=== PATIENT | male | born 1935 | race Caucasian/White ===

== ENCOUNTER 2020-07-01 14:16 | Outpatient (REF) | payer MEDICARE, OTHER, SELFPAY ==
[2020-07-01 15:11] LABS: MANUAL DIFF FLAG NO
[2020-07-01 15:32] LABS: Basophils Absolute Auto 0.1 X10*3/uL (0.0-0.2); Basophils Percent Auto 0.6 % (0-2); Eosinophils Absolute Auto 0.4 X10*3/uL (0.0-0.4); Eosinophils Percent Auto 4.5 % (0-4); Hematocrit 39.4 % (42-52); Hemoglobin 13.2 g/dl (14.0-18.0); Imm Gran Abs Auto 0.03 X10*3/uL (0.00-0.03); Imm Gran Pct Auto 0.4 % (0.0-0.4); Lymphocytes Absolute Auto 1.3 X10*3/uL (1.2-4.9); Lymphocytes Percent Auto 15.8 % (20-40); Mean Corpuscular HGB Conc 33.5 g/dl (31.0-36.0); Mean Corpuscular Hemoglobin 32.9 pg (27.0-33.0); Mean Corpuscular Volume 98.3 fL (80-98); Mean Platelet Volume 9.8 fL (9.4-12.4); Monocytes Absolute Auto 0.8 X10*3/uL (0.1-1.2); Monocytes Percent Auto 9.6 % (2-11); Neutrophils Absolute Auto 5.8 X10*3/uL (2.0-8.3); Neutrophils Percent Auto 69.1 % (45-73); Platelet Count 215 X10*3/uL (160-400); Red Blood Count 4.01 X10*6/uL (4.60-5.80); Red Cell Distribution Width 12.8 % (11.0-16.0); White Blood Count 8.4 X10*3/uL (4.8-10.8)
[2020-07-01 15:58] LABS: Anion Gap 11 (12-20); Blood Urea Nitrogen 17 mg/dL (9-16); Carbon Dioxide 27 mmol/L (22-29); Chloride 106 mmol/L (96-108); Estimated Glomerular Filt Rate > 60; Glucose Random 87 mg/dL (60-115); Sodium 140 mmol/L (135-145)
== END 2020-07-01 14:17 | disposition home or self-care (01) ==
LOC: HO.LAB 14:16
PROVIDERS: PCP Family Medicine; Visit Provider Internal Medicine
DX: K51.30 Ulcerative (chronic) rectosigmoiditis without complications (principal)
CPT/HCPCS: 36415; 80051; 82565; 82947; 84520; 85025

== ENCOUNTER 2020-10-15 11:20 | Outpatient (REF) | payer MEDICARE, OTHER, SELFPAY ==
--- NOTE | 2020-10-15 | US_ITS ---
EXAMINATION: US RETROPERITONEAL LIMITED (RENAL ONLY) CLINICAL INFORMATION: Renal stone.. COMPARISON: Renal ultrasound 12/31/[address] abdomen 10/01/2019. TECHNIQUE: Routine retroperitoneal ultrasound imaging was performed. FINDINGS: RIGHT KIDNEY: 11.7 x 4.6 x 4.8 cm (SAG x AP x TRV). The kidney is normal in size, contour, and echogenicity. Renal cortical thickness is normal. There are clusters of small radiopaque calculi in lower pole with the largest echogenic stone measuring 0.5 x 0.3 cm. There are several anechoic cysts seen. The multiple cysts largest cyst with septations measures 2.2 x 2.1 x 2.0 cm in the lower pole. No caliectasis or hydronephrosis seen. No hematoma seen as was noted previously LEFT KIDNEY: 13.2 x 5.9 x 5.7 cm (SAG x AP x TRV). The kidney is normal in size, contour, and echogenicity. Renal cortical thickness is normal. There are multiple anechoic cysts with largest midpole cyst measuring 1.3 x 1.0 x 1.0 cm. There is an echogenic stone in lower pole measuring 0.4 x 0.2 cm in lower pole. There is echogenic calcification in the upper pole cortex, ? vascular. US/US renal BI IMPRESSION: 1. Bilateral renal cysts. Largest complex cyst with septation right kidney measures 2.2 cm. 2. Nonobstructive bilateral renal echogenic stones. No caliectasis.
== END 2020-10-15 11:21 | disposition home or self-care (01) ==
LOC: HO.US 11:20
PROVIDERS: Visit Provider Urology
DX: N20.0 Calculus of kidney (principal)
CPT/HCPCS: 76775

== ENCOUNTER → 2020-10-21 13:06 | Outpatient (BNVA) | payer MEDICARE, OTHER, SELFPAY | PROVIDERS: PCP Family Medicine; Visit Provider Urology | DX: Z13.89 Encounter for screening for other disorder (principal) | CPT/HCPCS: Q3014 ==

== ENCOUNTER 2020-12-31 08:28 | Outpatient (REF) | payer MEDICARE, OTHER, SELFPAY ==
[2020-12-31 17:55] LABS: Alanine Aminotransferase 16 U/L (0-40); Anion Gap 12 (12-20); Blood Urea Nitrogen 17 mg/dL (9-16); Carbon Dioxide 26 mmol/L (22-29); Chloride 106 mmol/L (96-108); Estimated Glomerular Filt Rate > 60; Potassium 4.2 mmol/L (3.3-5.1); Sodium 140 mmol/L (135-145)
== END 2020-12-31 08:29 | disposition home or self-care (01) ==
LOC: HO.HMGCLDS 08:28
PROVIDERS: Visit Provider Family Medicine
DX: I10 Essential (primary) hypertension (principal); E78.00 Pure hypercholesterolemia, unspecified; Z79.899 Other long term (current) drug therapy
CPT/HCPCS: 36415; 80051; 82550; 82565; 84460; 84520

== ENCOUNTER 2021-01-29 10:15 | Emergency (ER) | payer MEDICARE, OTHER, SELFPAY ==
--- NOTE | ~2021-01-29 | XR_ITS ---
EXAMINATION: XR CHEST CLINICAL INFORMATION: Dizziness, unsteady gait. COMPARISON: None TECHNIQUE: 2 views of the chest were obtained. FINDINGS: The lungs are well-expanded and clear of acute pneumonic process heart size and pulmonary vascularity is normal. There is mild spondylosis of dorsal spine. No lytic process seen. XR/XR chest 2V IMPRESSION: Unremarkable chest exam.
--- NOTE | ~2021-01-29 | CT_ITS ---
EXAMINATION: CT HEAD WITHOUT CONTRAST CLINICAL INFORMATION: Dizziness, unsteady on feet x3 weeks COMPARISON: None TECHNIQUE: Contiguous axial imaging was performed from the skull base to vertex without intravenous administration of contrast. This CT examination was performed using dose optimization techniques as appropriate, variously including the following: *Automated exposure control *Adjustment of mA and/or kV according to patient size (this includes techniques or standardized protocols for targeted exams where dose is matched to indication/reason for exam; i.e. extremities or head) *Use of iterative reconstruction technique DLP: 622 mGy-cm FINDINGS: There is no evidence of acute intracranial hemorrhage or territorial infarction. No abnormal mass effect or midline shift is seen. Mas to white matter differentiation is well preserved. No extra-axial fluid collections are identified. The lateral ventricles are symmetrical but mildly enlarged. There is diffuse periventricular hypodensity in both cerebral hemispheres suggestive of chronic small vessel ischemic changes. There is mild atherosclerotic changes of left vertebral and basilar artery with mild dolichoectasia. The osseous structures and soft tissues are normal. There is mild mucoperiosteal thickening in bilateral maxillary sinuses. Rest of the paranasal sinuses and mastoid air cells are well-aerated. CT/CT head/brain wo con IMPRESSION: No acute intracranial process seen. Chronic bilateral maxillary sinus inflammatory changes.
--- NOTE | 2021-01-29 11:13 | ECG_ITS ---
Test Reason : DIZZINESS Blood Pressure : / mmHG Vent. Rate : 056 BPM Atrial Rate : 056 BPM P-R Int : 164 ms QRS Dur : 092 ms QT Int : 430 ms P-R-T Axes : -04 032 053 degrees QTc Int : 414 ms Sinus bradycardia Otherwise normal ECG When compared with ECG of 24-JUN-2009 14:05, No significant change was found Referred By: Rosalina Aldana Electronically Signed By:BRIDGET REES
[2021-01-29 11:14] VITALS: BP 162/78; PULSE 64; RESP 16; TEMP 36.7; O2SAT 97; BMI 22.8
[2021-01-29 11:30] LABS: MANUAL DIFF FLAG NO
--- NOTE | 2021-01-29 11:36 | ED_ITS ---
HPI - General Adult General Chief complaint: General Medical Stated complaint: anxiety Time Seen by Provider: 01/29/21 11:02 Source: patient and family Mode of arrival: ambulatory Limitations: no limitations History of Present Illness HPI narrative: 85-year-old male with a past medical history of hypertension, hypercholesterolemia, elevated PSA, renal cyst/stones, diverticulosis status post bowel resections and colitis presenting to the ED with complaints of dizziness, dry mouth, jittery and unsteady on his feet for the past 3 weeks after he started Budesonide 3 weeks ago for colitis. He reports he may be deh ydrated. He reports he continues to have semi formed stools which is similar compared to priors and has when approximately 4 times this morning. No changes in stool habits. Reports he is also currently on Tamulosin/Flomax, omeprazole and Mesalamine although he has chronically been on this for months to years and has never had of the symptoms he has been experiencing over the past 3 weeks. Denies any head injury, headache, changes in vision, nausea/vomiting, chest pain, shortness of breath, dyspnea exertion, orthopnea, abdominal pain, back pain, paresthesias, palpitations, black or bloody stools, dysuria, hematuria or any other symptoms complaints or concerns at this time. Reports he is not on any blood thinners. Denies recent travel or sick contacts. Related Data Home Medications Medication Instructions Recorded Confirmed aspirin 81 mg tablet,delayed 81 mg PO DAILY 10/21/20 10/21/20 release omeprazole 10 mg capsule,delayed 10 mg PO DAILY 10/21/20 10/21/20 release simvastatin 40 mg tablet 40 mg PO DAILY 10/21/20 10/21/20 Previous Rx's Medication Instructions Recorded tamsulosin 0.4 mg capsule 0.4 mg PO DAILY 90 Days #90 cap 11/21/20 Allergies Allergy/AdvReac Type Severity Reaction Status Date / Time meperidine [From Demerol] Allergy Severe N/V Unverified 06/12/20 15:10 Review of Systems Review of Systems: Constitutional : No Fever, No Chills, No Night Sweats, No Fatigue, No Malaise ENT/Mouth : Positive dry mouth sensation, No Ear Pain, No Nasal Congestion, No Sinus Pain, No sore throat, No Rhinorrhea Eyes: No Eye Pain, No Swelling, No Redness, No Foreign Body, No Discharge, No Vision Changes Cardiovascular : No Chest Pain, No SOB, No Dyspnea on Exertion, No Orthopnea, No Palpitations Respiratory : No Cough, No Sputum, No Wheezing, No Dyspnea Gastrointestinal : Positive loose stools, No Nausea, No Vomiting, No Diarrhea, No Constipation, No abdominal Pain, No Hematochezia, No Melena Genitourinary : No Dysuria, No Urinary Frequency, No Urinary Incontinence, No Urgency, No Flank Pain Musculoskeletal : No joint pain, No Myalgias Skin : No lacerations Neuro : Positive dizziness x 3 weeks, positive feeling unsteady of his feet x 3 weeks, No Focal weakness, no general weakness, No Numbness, No Paresthesias, No Loss of Consciousness, No Headache Psych: Positive anxiety, no depression, no SI, no homicidal ideations, no aud itory or visual hallucinations or thoughts of self injury Yes all other systems are reviewed and are negative [facility] Past Medical History Attestation statement: The following information was validated with the patient. Medical History Colitis Elevated PSA Elevated PSA Renal cyst Renal stones Renal stones Ureteral stone with hydronephrosis Surgical History History of bowel resection Social History Social History Household Members: Spouse Smoking Status: Former smoker Advance Directives: Yes Advance Directives Information Provided: Yes Advance Directives on File: No Current occupational status: retired Physical Exam Vital Signs: Vital Signs: Last Vital Signs Temp 98.1 F 01/29/21 11:14 Pulse 70 01/29/21 12:58 Resp 16 01/29/21 12:58 BP 153/76 H 01/29/21 12:58 Pulse Ox 99 01/29/21 12:58 Body Mass Index 22.8 Vital signs have been reviewed as normal and appeared to be correct. Blood pressure hypertensive at 162/78. Heart rate normal. Respiration rate normal. Temperature normal. Oxygen saturation normal. Appearance: Alert. Oriented X3. No acute distress. Head: Normal external exam. Normocephalic. Atraumatic. Able to rotate head bilaterally. Eyes: PERRLA. EOMI. No nystagmus noted. Conjunctiva and sclera normal. Eyelids normal. Corneal reflex normal. ENT: EAC normal. TM's Normal. Hearing normal. Pharynx normal. Uvula midline. tongue midline. Moist mucous membranes. No trismus noted. No drooling noted. No muffled voice noted. No nystagmus noted. Neck: Normal inspection. Neck supple. FROM. No adenopathy. Trachea midline. Thyroid Normal. No meningeal signs. No neck mass noted. CVS: Normal heart rate and rhythm. Heart sound normal. No murmurs noted. Pulses normal throughout. Respiratory: No respiratory distress. Painless inspiration. Breath sounds normal. No wheezes/rales/rhonchi noted. Chest nontender. No accessory muscle usage noted or decreased air movement noted. Abdomen: Soft and nontender. Bowel sounds normal in all 4 quadrants. No distention noted. No organomegaly noted. No visible injury noted. Back: No CVA tenderness. Full range of motion noted. Skin: Skin warm and dry. Normal skin color. Normal skin turgor. No rashes/lesions/lacerations noted. Extremities: No lower extremity edema. Extremities exhibit normal range of motion. Extremities nontender. Able to shrug shoulders bilaterally and keep up against resistance. Neuro: Oriented X 3. No motor deficit. No sensory deficit. Reflexes normal. Moving all extremities. No focal motor deficits. Cranial nerves II-XI intact bilaterally. Facial strength normal. Normal cognition. Speech normal. Gait normal. Strength 5/5 throughout. No pronator drift. No tremor noted. No fasciculations noted. No rigidity noted. Muscle tone normal throughout. No asterixis noted. Kyhncx-wv-[id number] test normal. Heel to lafleur test normal. Tandem gait normal. Does not sway with eyes open. Romberg test negative. Rapid alternating movement upper extremity normal. Rapid alternating movement lower extremity normal. Hand drop from overhead Misses face. NIHSS score 0. Course Course Course Narrative: 13pm - labs obtained and patient with a mild baseline anemia similar when compared to prior. Total bilirubin 1.5 although patient's abdomen is soft and nontender. Otherwise all other labs are within normal limits. UA within normal limits no evidence of UTI. 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 Chest x-ray within normal limits no acute processes are noted. EKG is sinus bradycardia no acute processes are noted. 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 Instructed patient to return if any new or worsening symptoms to follow up with primary care provider. Patient and daughter at bedside understand and agree with this plan. Medical Decision Making [facility] Narrative Medical decision making narrative: 11:15am - 85-year-old male with a past medical history of hypertension, hypercholesterolemia, elevated PSA, renal cyst/stones, diverticulosis status post bowel resections and colitis presenting to the ED with complaints of dizziness, dry mouth, jittery and unsteady on his feet for the past 3 weeks after he started Budesonide 3 weeks ago for colitis. - on exam patient is alert and oriented x3. Not in any acute distress. Mildly hypertensive at 162/78 otherwise all other vitals are within normal limits. No focal neuro deficits are noted. Normal steady gait. NIH SS score 0. Patient not a candidate for tPA as symptoms started approximately 3 weeks ago and he has non disabling symptoms at this time. Lungs clear to auscultation, CV RRR. Abdomen is soft nontender. No lower extremity edema or calf tenderness noted. - Plan: Labs, CT scan of brain, EKG, chest x-ray, orthostatic vitals then re- evaluate. Lab Data Result diagrams: 01/29/21 11:24 01/29/21 11:24 Labs: Lab Results 01/29/21 01/29/21 01/29/21 Range/Units 11:24 11:24 11:24 WBC 8.5 (4.8-10.8) X10*3/uL RBC 4.00 L (4.60-5.80) X10*6/uL Hgb 12.8 L (14.0-18.0) g/dl Hct 39.0 L (42-52) % MCV 97.5 (80-98) fL MCH 32.0 (27.0-33.0) pg MCHC 32.8 (31.0-36.0) g/dl RDW 12.9 (11.0-16.0) % Plt Count 208 (160-400) X10*3/uL MPV 9.2 L (9.4-12.4) fL Immature Gran % (Auto) 0.2 (0.0-0.4) % Neut % (Auto) 66.7 (45-73) % Lymph % (Auto) 19.7 L (20-40) % Wheeler % (Auto) 11.3 H (2-11) % Eos % (Auto) 1.4 (0-4) % Baso % (Auto) 0.7 (0-2) % Lymph # (Auto) 1.7 (1.2-4.9) X10*3/uL Wheeler # (Auto) 1.0 (0.1-1.2) X10*3/uL Eos # (Auto) 0.1 (0.0-0.4) X10*3/uL Baso # (Auto) 0.1 (0.0-0.2) X10*3/uL Abs Immat Gran (auto) 0.02 (0.00-0.03) X10*3/uL Absolute Neuts (auto) 5.7 (2.0-8.3) X10*3/uL Absolute Nucleated RBC 0.000 (0.0-0.012) X10*3/uL Nucleated RBC % (auto) 0.0 (0.0-0.2) /100WBC Hold Purple Top PT Cancelled INR Cancelled APTT (24.1-38.0) SEC Sodium (135-145) mmol/L Potassium (3.3-5.1) mmol/L Chloride (96-108) mmol/L Carbon Dioxide (22-29) mmol/L Anion Gap (12-20) BUN (9-16) mg/dL Creatinine (0.5-1.4) mg/dL Estim Creat Clear Calc Estimated GFR Random Glucose (60-115) mg/dL Calcium (8.4-10.2) mg/dL Magnesium 2.0 (1.6-2.6) mg/dL Total Bilirubin (0.0-1.0) mg/dL AST (5-37) U/L ALT (0-40) U/L Alkaline Phosphatase (39-117) U/L Total Protein (6.5-8.0) g/dL Albumin (3.5-5.0) g/dL Urine Color Urine Appearance Urine pH (5.0-8.0) Ur Specific [place] (1.005-1.025) Urine Protein (NEG-TRACE) MG/DL Urine Glucose (UA) (NEG) MG/DL Urine Ketones (NEG) MG/DL Urine Blood (NEG) Urine Nitrite (NEG) Ur Leukocyte Esterase (NEG) Urine RBC (0) /HPF Urine WBC (0-4) /HPF Ur Squamous Epith Cells /LPF Urine Bacteria /LPF Urine Mucus /LPF 01/29/21 01/29/21 01/29/21 Range/Units 11:24 11:24 11:24 WBC (4.8-10.8) X10*3/uL RBC (4.60-5.80) X10*6/uL Hgb (14.0-18.0) g/dl Hct (42-52) % MCV (80-98) fL MCH (27.0-33.0) pg MCHC (31.0-36.0) g/dl RDW (11.0-16.0) % Plt Count (160-400) X10*3/uL MPV (9.4-12.4) fL Immature Gran % (Auto) (0.0-0.4) % Neut % (Auto) (45-73) % Lymph % (Auto) (20-40) % Wheeler % (Auto) (2-11) % Eos % (Auto) (0-4) % Baso % (Auto) (0-2) % Lymph # (Auto) (1.2-4.9) X10*3/uL Wheeler # (Auto) (0.1-1.2) X10*3/uL Eos # (Auto) (0.0-0.4) X10*3/uL Baso # (Auto) (0.0-0.2) X10*3/uL Abs Immat Gran (auto) (0.00-0.03) X10*3/uL Absolute Neuts (auto) (2.0-8.3) X10*3/uL Absolute Nucleated RBC (0.0-0.012) X10*3/uL Nucleated RBC % (auto) (0.0-0.2) /100WBC Hold Purple Top SEE NOTE PT 13.6 H INR 1.1 APTT 30.7 (24.1-38.0) SEC Sodium 138 (135-145) mmol/L Potassium 3.7 (3.3-5.1) mmol/L Chloride 106 (96-108) mmol/L Carbon Dioxide 26 (22-29) mmol/L Anion Gap 10 L (12-20) BUN 17 H (9-16) mg/dL Creatinine 0.80 (0.5-1.4) mg/dL Estim Creat Clear Calc 66.1 Estimated GFR > 60 Random Glucose 116 H (60-115) mg/dL Calcium 8.9 (8.4-10.2) mg/dL Magnesium (1.6-2.6) mg/dL Total Bilirubin 1.5 H (0.0-1.0) mg/dL AST 15 (5-37) U/L ALT 18 (0-40) U/L Alkaline Phosphatase 61 (39-117) U/L Total Protein 6.4 L (6.5-8.0) g/dL Albumin 3.7 (3.5-5.0) g/dL Urine Color Urine Appearance Urine pH (5.0-8.0) Ur Specific [place] (1.005-1.025) Urine Protein (NEG-TRACE) MG/DL Urine Glucose (UA) (NEG) MG/DL Urine Ketones (NEG) MG/DL Urine Blood (NEG) Urine Nitrite (NEG) Ur Leukocyte Esterase (NEG) Urine RBC (0) /HPF Urine WBC (0-4) /HPF Ur Squamous Epith Cells /LPF Urine Bacteria /LPF Urine Mucus /LPF 01/29/21 Range/Units 11:48 WBC (4.8-10.8) X10*3/uL RBC (4.60-5.80) X10*6/uL Hgb (14.0-18.0) g/dl Hct (42-52) % MCV (80-98) fL MCH (27.0-33.0) pg MCHC (31.0-36.0) g/dl RDW (11.0-16.0) % Plt Count (160-400) X10*3/uL MPV (9.4-12.4) fL Immature Gran % (Auto) (0.0-0.4) % Neut % (Auto) (45-73) % Lymph % (Auto) (20-40) % Wheeler % (Auto) (2-11) % Eos % (Auto) (0-4) % Baso % (Auto) (0-2) % Lymph # (Auto) (1.2-4.9) X10*3/uL Wheeler # (Auto) (0.1-1.2) X10*3/uL Eos # (Auto) (0.0-0.4) X10*3/uL Baso # (Auto) (0.0-0.2) X10*3/uL Abs Immat Gran (auto) (0.00-0.03) X10*3/uL Absolute Neuts (auto) (2.0-8.3) X10*3/uL Absolute Nucleated RBC (0.0-0.012) X10*3/uL Nucleated RBC % (auto) (0.0-0.2) /100WBC Hold Purple Top PT INR APTT (24.1-38.0) SEC Sodium (135-145) mmol/L Potassium (3.3-5.1) mmol/L Chloride (96-108) mmol/L Carbon Dioxide (22-29) mmol/L Anion Gap (12-20) BUN (9-16) mg/dL Creatinine (0.5-1.4) mg/dL Estim Creat Clear Calc Estimated GFR Random Glucose (60-115) mg/dL Calcium (8.4-10.2) mg/dL Magnesium (1.6-2.6) mg/dL Total Bilirubin (0.0-1.0) mg/dL AST (5-37) U/L ALT (0-40) U/L Alkaline Phosphatase (39-117) U/L Total Protein (6.5-8.0) g/dL Albumin (3.5-5.0) g/dL Urine Color YELLOW Urine Appearance CLEAR Urine pH 6.0 (5.0-8.0) Ur Specific [place] 1.025 (1.005-1.025) Urine Protein NEG (NEG-TRACE) MG/DL Urine Glucose (UA) NEG (NEG) MG/DL Urine Ketones NEG (NEG) MG/DL Urine Blood TRACE (NEG) Urine Nitrite NEG (NEG) Ur Leukocyte Esterase NEG (NEG) Urine RBC 1-4 (0) /HPF Urine WBC 0-2 (0-4) /HPF Ur Squamous Epith Cells NONE /LPF Urine Bacteria NONE /LPF Urine Mucus TRACE /LPF Imaging Data Chest x-ray: Attestation: I personally reviewed and interpreted this imaging study as follows: Radiologist's impression: FINDINGS: The lungs are well-expanded and clear of acute pneumonic process heart size and pulmonary vascularity is normal. There is mild spondylosis of dorsal spine. No lytic process seen. XR/XR chest 2V IMPRESSION: Unremarkable chest exam. CT scan - head: Attestation: I personally reviewed and interpreted this imaging study as follows: Radiologist's impression: FINDINGS: There is no evidence of acute intracranial hemorrhage or territorial infarction. No abnormal mass effect or midline shift is seen. Mas to white matter differentiation is well preserved. No extra-axial fluid collections are identified. The lateral ventricles are symmetrical but mildly enlarged. There is diffuse periventricular hypodensity in both cerebral hemispheres suggestive of chronic small vessel ischemic changes. There is mild atherosclerotic changes of left vertebral and basilar artery with mild dolichoectasia. The osseous structures and soft tissues are normal. There is mild mucoperiosteal thickening in bilateral maxillary sinuses. Rest of the paranasal sinuses and mastoid air cells are well-aerated. CT/CT head/brain wo con IMPRESSION: No acute intracranial process seen. Chronic bilateral maxillary sinus inflammatory changes. ECG Data Attestation: I personally reviewed and interpreted this ECG as follows: Interpretation: Sinus bradycardia with ventricular rate of 56 with a normal NC interval normal QRS duration normal QT/QTC interval. No acute ischemic changes are noted. Similar when compared to prior EKG 06/24/2009. Discharge Plan Discharge Clinical Impression: Adverse reaction to drug Patient Disposition: Home, Self-Care Instructions: Budesonide (By mouth) Prescriptions: No Action tamsulosin 0.4 mg capsule 0.4 mg PO DAILY 90 Days Qty: 90 RF: 2 omeprazole 10 mg capsule,delayed release(DR/EC) 10 mg PO DAILY RF: 0 simvastatin 40 mg tablet 40 mg PO DAILY RF: 0 aspirin [Adult Low Dose Aspirin] 81 mg tablet,delayed release (DR/EC) 81 mg PO DAILY RF: 0 Referrals: Chu Vergara MD [Primary Care Provider] - 2 days Print Language: Maltese
[2021-01-29 11:38] LABS: Basophils Absolute Auto 0.1 X10*3/uL (0.0-0.2); Basophils Percent Auto 0.7 % (0-2); Eosinophils Absolute Auto 0.1 X10*3/uL (0.0-0.4); Eosinophils Percent Auto 1.4 % (0-4); Hemoglobin 12.8 g/dl (14.0-18.0); Imm Gran Abs Auto 0.02 X10*3/uL (0.00-0.03); Imm Gran Pct Auto 0.2 % (0.0-0.4); Lymphocytes Absolute Auto 1.7 X10*3/uL (1.2-4.9); Lymphocytes Percent Auto 19.7 % (20-40); Mean Corpuscular HGB Conc 32.8 g/dl (31.0-36.0); Mean Corpuscular Volume 97.5 fL (80-98); Mean Platelet Volume 9.2 fL (9.4-12.4); Monocytes Percent Auto 11.3 % (2-11); Neutrophils Absolute Auto 5.7 X10*3/uL (2.0-8.3); Neutrophils Percent Auto 66.7 % (45-73); Platelet Count 208 X10*3/uL (160-400); Red Cell Distribution Width 12.9 % (11.0-16.0); White Blood Count 8.5 X10*3/uL (4.8-10.8)
[2021-01-29 11:44] LABS: INTERNATIONAL NORM RATIO 1.1 (0.9-1.1); Prothrombin Time 13.6 SEC (10.8-13.0)
[2021-01-29 11:46] LABS: Partial Thromboplastin Time 30.7 SEC (24.1-38.0)
[2021-01-29 11:59] LABS: Alanine Aminotransferase 18 U/L (0-40); Albumin Level 3.7 g/dL (3.5-5.0); Alkaline Phosphatase 61 U/L (39-117); Anion Gap 10 (12-20); Aspartate Amino Transferase 15 U/L (5-37); Bilirubin Total 1.5 mg/dL (0.0-1.0); Blood Urea Nitrogen 17 mg/dL (9-16); Calcium 8.9 mg/dL (8.4-10.2); Carbon Dioxide 26 mmol/L (22-29); Chloride 106 mmol/L (96-108); Creatinine Clr Calc Pharmacy 66.1; Estimated Glomerular Filt Rate > 60; Glucose Random 116 mg/dL (60-115); Potassium 3.7 mmol/L (3.3-5.1); Sodium 138 mmol/L (135-145); Total Protein 6.4 g/dL (6.5-8.0)
[2021-01-29 12:01] LABS: Appearance Urine CLEAR; Color Urine YELLOW; Glucose Urine UA NEG (NEG); Leukocyte Esterase Urine NEG (NEG); Nitrite Urine NEG (NEG); Specific Gravity - Urine 1.025 (1.005-1.025); Urine Blood TRACE (NEG); Urine Ketones NEG (NEG); Urine Protein NEG (NEG-TRACE)
[2021-01-29 12:17] LABS: Mucus Urine TRACE /LPF; WBC Urine 0-2 /HPF (0-4)
[2021-01-29 12:58] VITALS: BP 153/76; PULSE 70; RESP 16; O2SAT 99
== END 2021-01-29 15:11 | disposition home or self-care (01) ==
PROVIDERS: Physician Assistant Medical; Emergency Provider Emergency Medicine; PCP Family Medicine
DX: R42 Dizziness and giddiness (principal); T44.6X5A Adverse effect of alpha-adrenoreceptor antagonists, initial encounter; F41.1 Generalized anxiety disorder; F43.0 Acute stress reaction; R26.81 Unsteadiness on feet; Y92.9 Unspecified place or not applicable; Z79.82 Long term (current) use of aspirin; Z79.899 Other long term (current) drug therapy; Z87.891 Personal history of nicotine dependence
CPT/HCPCS: 36415; 70450; 71046; 80053; 81001; 81003; 83735; 85025; 85610; 85730; 93005; 99284

== ENCOUNTER 2021-04-02 14:21 | Outpatient (REF) | payer MEDICARE, OTHER, SELFPAY ==
--- NOTE | ~2021-04-02 | US_ITS ---
EXAMINATION: US RETROPERITONEAL LIMITED (RENAL ONLY) CLINICAL INFORMATION: Cyst of kidney, acquired. COMPARISON: Bilateral renal ultrasound dated 10/15/2020. Renals only ultrasound dated 03/03/2020. KUBs dated 02/13/2020 and 01/16/2020. CT abdomen and pelvis without contrast dated 10/01/2019. TECHNIQUE: Real-time imaging of the kidneys. FINDINGS: RIGHT KIDNEY: 10.8 x 4.7 x 3.5 cm (SAG x AP x TRV). The kidney is normal in size, contour, and echogenicity. Renal cortical thickness is normal. There is a 1.6 x 1.3 x 1.4 cm cyst in the midpole. There is a 1.9 x 2.2 x 2 cm cyst in the midpole. There is a 2.2 x 2.1 x 2.1 cm minimally complex cyst in the lower pole with thin septation. No renal calculi or hydronephrosis. LEFT KIDNEY: 12.8 x 5.5 x 4.5 cm (SAG x AP x TRV). The kidney is normal in size, contour, and echogenicity. Renal cortical thickness is normal. There is a 1.2 x 1.2 x 1.1 cm cyst in the midpole. No renal calculi or hydronephrosis. US/US renal BI IMPRESSION: Stable bilateral cysts. Previously identified renal stones are not appreciated.
== END 2021-04-02 14:22 | disposition home or self-care (01) ==
LOC: HO.US 14:21
PROVIDERS: Visit Provider Urology
DX: N20.0 Calculus of kidney (principal); N28.1 Cyst of kidney, acquired; R97.20 Elevated prostate specific antigen [PSA]
CPT/HCPCS: 76775

== ENCOUNTER → 2021-05-28 14:34 | Outpatient (BNVA) | payer MEDICARE, OTHER, SELFPAY | PROVIDERS: PCP Family Medicine; Visit Provider Urology | DX: N28.1 Cyst of kidney, acquired (principal); R97.20 Elevated prostate specific antigen [PSA] | CPT/HCPCS: 99212 ==

== ENCOUNTER 2021-08-03 11:07 | Outpatient (REF) | payer MEDICARE, OTHER, SELFPAY ==
[2021-08-03 14:51] LABS: Alanine Aminotransferase 22 U/L (0-40); Anion Gap 12 (12-20); Blood Urea Nitrogen 17 mg/dL (9-16); Carbon Dioxide 26 mmol/L (22-29); Chloride 105 mmol/L (96-108); Estimated Glomerular Filt Rate > 60; Potassium 3.8 mmol/L (3.3-5.1); Sodium 139 mmol/L (135-145)
== END 2021-08-03 11:08 | disposition home or self-care (01) ==
LOC: HO.HMGCLDS 11:07
PROVIDERS: PCP Family Medicine; Visit Provider Family Medicine
DX: I10 Essential (primary) hypertension (principal); E78.00 Pure hypercholesterolemia, unspecified; Z79.899 Other long term (current) drug therapy
CPT/HCPCS: 36415; 80051; 82550; 82565; 84460; 84520

== ENCOUNTER 2021-10-13 13:30 | Outpatient (REF) | payer MEDICARE, OTHER, SELFPAY ==
[2021-10-13 17:13] LABS: Vitamin D 25-OH Total 37.3 ng/mL (>30)
[2021-10-17 12:41] LABS: Methylmalonic Acid 223 nmol/L (87-318)
== END 2021-10-13 13:31 | disposition home or self-care (01) ==
LOC: HO.HMGCLDS 13:30
PROVIDERS: PCP Family Medicine; Visit Provider Family Medicine
DX: F03.90 Unspecified dementia, unspecified severity, without behavioral disturbance, psychotic disturbance, mood disturbance, and anxiety (principal)
CPT/HCPCS: 36415; 82306; 83921

== ENCOUNTER 2021-10-27 10:11 | Outpatient (REF) | payer MEDICARE, OTHER, SELFPAY ==
--- NOTE | ~2021-10-27 | US_ITS ---
EXAMINATION: US RETROPERITONEAL LIMITED (RENAL ONLY) CLINICAL INFORMATION: Cyst of kidney, acquired. COMPARISON: Renal ultrasound 04/02/2021 and 10/15/2020. X-ray KUB 02/13/2020 and 01/16/2020. CT abdomen and pelvis 10/01/2019. TECHNIQUE: Real-time imaging of the kidneys. FINDINGS: RIGHT KIDNEY: 12.2 x 5.3 x 6.6 cm (SAG x AP x TRV). The kidney is normal in size, contour, and echogenicity. Renal cortical thickness is normal. No hydronephrosis. There are a few anechoic cysts. The largest cyst with internal debris measures 3.2 x 2.4 x 2.3 cm. There is an echogenic nonobstructive 2 mm stone midpole. No additional echogenic stones seen. There is no caliectasis. LEFT KIDNEY: 13.6 x 5.5 x 5.2 cm (SAG x AP x TRV). The kidney is normal in size, contour, and echogenicity. Renal cortical thickness is normal. No hydronephrosis. There are a few anechoic cysts. The largest cyst lower pole measures 1.4 x 1.2 x 1.2 cm. There is an echogenic 0.4 cm stone in the upper pole without caliectasis. No additional echogenic calculi seen. US/US renal BI IMPRESSION: Bilateral nonobstructive echogenic renal calculi. No caliectasis or hydronephrosis. Bilateral renal cysts.
== END 2021-10-27 10:12 | disposition home or self-care (01) ==
LOC: HO.US 10:11
PROVIDERS: PCP Family Medicine; Visit Provider Urology
DX: N28.1 Cyst of kidney, acquired (principal)
CPT/HCPCS: 76775

== ENCOUNTER 2021-11-10 13:55 | Outpatient (REF) | payer MEDICARE, OTHER, SELFPAY ==
[2021-11-10 17:02] LABS: Blood Urea Nitrogen 21 mg/dL (9-16); Estimated Glomerular Filt Rate > 60
== END 2021-11-10 13:56 | disposition home or self-care (01) ==
LOC: HO.HMGCLDS 13:55
PROVIDERS: PCP Family Medicine; Visit Provider Family Medicine
DX: I10 Essential (primary) hypertension (principal)
CPT/HCPCS: 36415; 82565; 84520

== ENCOUNTER 2021-11-18 13:57 | Outpatient (REF) | payer MEDICARE, OTHER, SELFPAY ==
[2021-11-18 19:36] LABS: PSA,Total (Free>4and<10) 4.68 ng/mL (0.00-4.00)
[2021-11-19 13:46] LABS: Free Prostate Spec Ag 0.7 ng/mL; Percent Free Prostate Spec Ag 18 % (calc) (>25)
== END 2021-11-18 13:58 | disposition home or self-care (01) ==
LOC: HO.HMGCLDS 13:57
PROVIDERS: Visit Provider Urology
DX: Z12.5 Encounter for screening for malignant neoplasm of prostate (principal); R97.20 Elevated prostate specific antigen [PSA]; N40.1 Benign prostatic hyperplasia with lower urinary tract symptoms; N13.8 Other obstructive and reflux uropathy
CPT/HCPCS: 36415; 84153; 84154

== ENCOUNTER → 2021-12-01 11:49 | Outpatient (BNVA) | payer MEDICARE, OTHER, SELFPAY | PROVIDERS: PCP Family Medicine; Visit Provider Urology | DX: N28.1 Cyst of kidney, acquired (principal); R97.20 Elevated prostate specific antigen [PSA] | CPT/HCPCS: 99212 ==

== ENCOUNTER 2022-01-12 13:23 | Outpatient (REF) | payer MEDICARE, OTHER, SELFPAY ==
[2022-01-12 16:50] LABS: MANUAL DIFF FLAG NO
[2022-01-12 16:54] LABS: Basophils Absolute Auto 0.1 X10*3/uL (0.0-0.2); Basophils Percent Auto 0.6 % (0-2); Eosinophils Absolute Auto 0.3 X10*3/uL (0.0-0.4); Eosinophils Percent Auto 4.2 % (0-4); Hematocrit 39.2 % (42.0-52.0); Hemoglobin 12.9 g/dl (14.0-18.0); Imm Gran Abs Auto 0.03 X10*3/uL (0.00-0.03); Imm Gran Pct Auto 0.4 % (0.0-0.4); Lymphocytes Absolute Auto 1.8 X10*3/uL (1.2-4.9); Lymphocytes Percent Auto 21.7 % (20-40); Mean Corpuscular HGB Conc 32.9 g/dl (31.0-36.0); Mean Corpuscular Hemoglobin 31.8 pg (27.0-33.0); Mean Corpuscular Volume 96.6 fL (80.0-98.0); Mean Platelet Volume 10.1 fL (9.4-12.4); Neutrophils Percent Auto 61.1 % (45-73); Platelet Count 241 X10*3/uL (160-400); Red Blood Count 4.06 X10*6/uL (4.60-5.80); Red Cell Distribution Width 13.7 % (11.0-16.0); White Blood Count 8.2 X10*3/uL (4.8-10.8)
[2022-01-12 17:11] LABS: Alanine Aminotransferase 18 U/L (0-40); Albumin Level 3.9 g/dL (3.5-5.0); Alkaline Phosphatase 77 U/L (39-117); Anion Gap 12 (12-20); Aspartate Amino Transferase 19 U/L (5-37); Bilirubin Total 1.4 mg/dL (0.0-1.0); Blood Urea Nitrogen 19 mg/dL (9-16); Calcium 9.4 mg/dL (8.4-10.2); Carbon Dioxide 25 mmol/L (22-29); Chloride 103 mmol/L (96-108); Estimated Glomerular Filt Rate > 60; Glucose Random 96 mg/dL (60-115); Potassium 4.1 mmol/L (3.3-5.1); Sodium 136 mmol/L (135-145); Total Protein 6.6 g/dL (6.5-8.0)
[2022-01-12 17:33] LABS: Free T4 (Free Thyroxine) 0.82 ng/dL (0.71-1.85)
[2022-01-12 18:28] LABS: Erythrocyte Sedimentation Rate 5 MM/HR (0-15)
== END 2022-01-12 13:24 | disposition home or self-care (01) ==
LOC: HO.HMGCLDS 13:23
PROVIDERS: PCP Family Medicine; Visit Provider Family Medicine
DX: R63.4 Abnormal weight loss (principal); R53.1 Weakness; R19.7 Diarrhea, unspecified
CPT/HCPCS: 36415; 80053; 84439; 85025; 85652

== ENCOUNTER 2022-07-16 13:16 | Outpatient (REF) | payer MEDICARE, OTHER, SELFPAY ==
[2022-07-16 14:32] LABS: Alanine Aminotransferase 18 U/L (0-40); Anion Gap 13 (12-20); Aspartate Amino Transferase 18 U/L (5-37); Blood Urea Nitrogen 17 mg/dL (9-16); Carbon Dioxide 28 mmol/L (22-29); Chloride 105 mmol/L (96-108); Estimated Glomerular Filt Rate > 60; Potassium 4.1 mmol/L (3.3-5.1); Sodium 142 mmol/L (135-145)
== END 2022-07-16 13:17 | disposition home or self-care (01) ==
LOC: HO.HMGCLDS 13:16
PROVIDERS: PCP Family Medicine; Visit Provider Family Medicine
DX: I10 Essential (primary) hypertension (principal); E78.00 Pure hypercholesterolemia, unspecified; Z79.899 Other long term (current) drug therapy
CPT/HCPCS: 36415; 80051; 82550; 82565; 84450; 84460; 84520

== ENCOUNTER 2022-11-16 11:28 | Outpatient (REF) | payer MEDICARE, OTHER, SELFPAY ==
--- NOTE | ~2022-11-16 | US_ITS ---
EXAMINATION: US RETROPERITONEAL LIMITED (RENAL ONLY) CLINICAL INFORMATION: Cyst of kidney, acquired. COMPARISON: Ultrasound retroperitoneal limited (renal only) 10/27/2021 and 04/02/2021. CT abdomen and pelvis without contrast 10/01/2019. TECHNIQUE: Real-time imaging of the kidneys. FINDINGS: RIGHT KIDNEY: 11.1 x 5.6 x 7.4 cm (SAG x AP x TRV). The kidney is normal in size, contour, and echogenicity. Renal cortical thickness is normal. No hydronephrosis. Redemonstration of a 2.8 x 2.7 x 2.9 cm cyst in the lower pole with a thin internal septation and some peripheral calcifications, increased in size from 12/31/2019 where it measured 1.6 x 1.8 x 1.5 cm and 04/02/2021 where it measured 2.2 x 2.1 x 2.1 cm; but not significantly changed in size compared to 11/06/2021. Additional simple Bosniak 1 cysts are noted in the mid and upper pole, for which no imaging follow-up is recommended. There is a 0.3 cm nonobstructing calculus in the lower pole. LEFT KIDNEY: 12.6 x 5.9 x 4.2 cm (SAG x AP x TRV). The kidney is normal in size, contour, and echogenicity. Renal cortical thickness is normal. No renal calculi or hydronephrosis. Simple cyst in the interpolar region measuring 1.4 cm, for which no imaging follow-up is recommended. US/US renal BI IMPRESSION: 1. A 2.9 cm cyst in the lower pole of the right kidney with a thin internal septation and some peripheral calcifications appears gradually increased in size compared to studies from 2019 and 2020. Attention on follow-up recommended. 2. There is a 0.3 cm nonobstructing calculus in the lower pole of the right kidney. 3. Other simple cysts in both kidneys are noted for which no imaging follow-up is recommended.
[2022-11-16 14:59] LABS: PSA,Total (Free>4and<10) 5.37 ng/mL (0.00-4.00)
[2022-11-17 10:03] LABS: Percent Free Prostate Spec Ag 19 % (calc) (>25); Prostate Specific Ag Total 5.4 ng/mL (< OR = 4.0)
== END 2022-11-16 11:29 | disposition home or self-care (01) ==
LOC: HO.HMGCX 11:28
PROVIDERS: PCP Family Medicine; Visit Provider Urology
DX: Z12.5 Encounter for screening for malignant neoplasm of prostate (principal); N28.1 Cyst of kidney, acquired; R97.20 Elevated prostate specific antigen [PSA]
CPT/HCPCS: 36415; 76775; 84153; 84154

== ENCOUNTER → 2022-12-16 14:32 | Outpatient (BNVA) | payer MEDICARE, OTHER, SELFPAY | PROVIDERS: PCP Family Medicine; Visit Provider Nurse Practitioner Family | DX: R97.20 Elevated prostate specific antigen [PSA] (principal); N20.0 Calculus of kidney; N28.1 Cyst of kidney, acquired; Z79.899 Other long term (current) drug therapy | CPT/HCPCS: 99212 ==

== ENCOUNTER 2023-01-28 14:31 | Outpatient (REF) | payer MEDICARE, OTHER, SELFPAY ==
[2023-01-28 16:32] LABS: MANUAL DIFF FLAG NO
[2023-01-28 16:36] LABS: Basophils Absolute Auto 0.1 X10*3/uL (0.0-0.2); Eosinophils Absolute Auto 0.5 X10*3/uL (0.0-0.4); Eosinophils Percent Auto 5.2 % (0-4); Hematocrit 41.9 % (42.0-52.0); Hemoglobin 13.8 g/dl (14.0-18.0); Imm Gran Abs Auto 0.03 X10*3/uL (0.00-0.03); Imm Gran Pct Auto 0.3 % (0.0-0.4); Lymphocytes Absolute Auto 1.9 X10*3/uL (1.2-4.9); Lymphocytes Percent Auto 21.5 % (20-40); Mean Corpuscular HGB Conc 32.9 g/dl (31.0-36.0); Mean Corpuscular Hemoglobin 32.6 pg (27.0-33.0); Mean Corpuscular Volume 99.1 fL (80.0-98.0); Mean Platelet Volume 10.3 fL (9.4-12.4); Monocytes Absolute Auto 0.9 X10*3/uL (0.1-1.2); Monocytes Percent Auto 9.6 % (2-11); Neutrophils Absolute Auto 5.5 x10*3/uL (2.0-8.3); Neutrophils Percent Auto 62.4 % (45-73); Platelet Count 236 X10*3/uL (160-400); Red Blood Count 4.23 X10*6/uL (4.60-5.80); Red Cell Distribution Width 13.4 % (11.0-16.0); White Blood Count 8.8 X10*3/uL (4.8-10.8)
[2023-01-28 16:45] LABS: Anion Gap 9 (12-20); Blood Urea Nitrogen 23 mg/dL (9-16); Carbon Dioxide 29 mmol/L (22-29); Chloride 106 mmol/L (96-108); Estimated Glomerular Filt Rate > 60; Potassium 3.9 mmol/L (3.3-5.1); Sodium 140 mmol/L (135-145)
== END 2023-01-28 14:32 | disposition home or self-care (01) ==
LOC: HO.HMGCLDS 14:31
PROVIDERS: PCP Family Medicine; Visit Provider Family Medicine
DX: I10 Essential (primary) hypertension (principal); K51.90 Ulcerative colitis, unspecified, without complications
CPT/HCPCS: 36415; 80051; 82565; 84520; 85025

== ENCOUNTER 2023-04-14 13:14 | Outpatient (REF) | payer MEDICARE, OTHER, SELFPAY ==
--- NOTE | ~2023-04-14 | US_ITS ---
EXAMINATION: US RETROPERITONEAL LIMITED (RENAL ONLY) CLINICAL INFORMATION: Calculus of kidney. COMPARISON: Ultrasound retroperitoneal limited (renal only) 11/16/2022 and 10/27/2021. X-ray abdomen KUB 02/13/2020 and 01/16/2020. CT abdomen and pelvis without contrast 10/01/2019. TECHNIQUE: Real-time imaging of the kidneys. Limited visualization due to bowel gas. FINDINGS: RIGHT KIDNEY: 11.6 x 5.0 x 6.1 cm (SAG x AP x TRV). Renal cortical thickness is normal. No hydronephrosis. Redemonstration of a 2.4 x 2.4 x 2.3 cm right midpole cyst with thin septation and peripheral calcification, previously 2.8 x 2.7 x 2.9 cm on 11/16/2022, 3.2 x 2.4 x 2.3 cm on 10/27/2021, and 2.2 x 2.1 x 2.1 cm on 04/02/2021. Additional Bosniak 1 simple cyst present for which there is no indication for followup imaging. LEFT KIDNEY: 13.1 x 6.3 x 5.6 cm (SAG x AP x TRV). Renal cortical thickness is normal. No renal calculi or hydronephrosis. A 1.8 cm interpolar Bosniak 1 cyst and there is no indication for followup imaging. US/US renal BI IMPRESSION: A 2.4 cm right mid to lower pole cyst with thin septation and peripheral calcifications has decreased in size since 11/16/2022, but has gradually increased in size compared to studies from 2019 and 2020. Recommend continued attention on followup imaging. No hydronephrosis.
[2023-04-14 17:09] LABS: PSA,Total (Free>4and<10) 3.57 ng/mL (0.00-4.00)
== END 2023-04-14 13:15 | disposition home or self-care (01) ==
LOC: HO.HMGCX 13:14
PROVIDERS: PCP Family Medicine; Visit Provider Nurse Practitioner Family
DX: Z12.5 Encounter for screening for malignant neoplasm of prostate (principal); N20.0 Calculus of kidney; N28.1 Cyst of kidney, acquired; R97.20 Elevated prostate specific antigen [PSA]
CPT/HCPCS: 36415; 76775; 84153

== ENCOUNTER 2023-04-21 15:05 | Outpatient (AMB) | payer MEDICARE, OTHER, SELFPAY ==
--- NOTE | 2023-04-21 15:13 | A.OFFVIS_ITS ---
Intake Intake Visit Reasons: 4m/PSA Intake Note: Patient presents for follow up PSA Urology Medications: tamsulosin, finasteride Blood Thinner: none Account Maintenance Representative Required: No Accompanied by: Daughter Allergies meperidine [From Demerol] Allergy (Severe, Verified 04/21/23 15:14) N/V HPI HPI Comments History of Present Illness Details Noah is a pleasant 86-year-old male patient of Dr. Fulton who was accompanied by his daughter Josefina at today's visit. He presents to the office today for follow-up of his renal cysts, nephrolithiasis, and elevated PSA. When asked patient reports to be doing and feeling well. Recent renal imaging results reviewed with the patient and his daughter today. Right kidney with redemonstration of a 2.4 x 2.4 x 2.3 right mid pole cyst with thin septation and peripheral calcification. Additional Bosniak 1 simple cyst present for which there is no indication for follow-up imaging. Left kidney with a 1.8 cm inter pole Bosniak 1 cysts and there is no indication for follow- up imaging. Recommended continued attenuation and follow-up imaging per radiology report. Recent PSA results reviewed with the patient is daughter today. PSAs are as follows: 11/17--4.7 PSA total and free %: 18% 11/18--5.4 PSA total and free %: 19% 04/17--3.6 Of note, patient was previously started on finasteride approximately 4 months ago. He reports compliance with finasteride daily. When asked he continues to deny any urological issues or concerns at this time. Throughout today's assessment he continues to report feeling and doing well. When asked he denies urinary urgency, urinary frequency, incontinence, nocturia, hematuria, dysuria, foul smelling urine, changes to urinary stream, flank pain, fever, and or chills. In office urinalysis results reviewed with the patient today. Renal cyst Interval imaging Imaging - 10/16 renal ultrasound question of small stones bilateral with renal cysts - 05/16 renal ultrasound.? Bilateral renal cyst up to 2 cm.? No evidence of stones - 11/17 renal ultrasound bilateral renal cyst up to 2 cm question of small stone right side -04/17 renal ultrasound bilateral renal cyst up to 2cm. No evidence of stones [facility] Medical History Colitis Elevated PSA Elevated PSA Renal cyst Renal stones Renal stones Ureteral stone with hydronephrosis Surgical History History of bowel resection Social History Household Members: Spouse Alcohol intake: never Current occupational status: retired Review of Systems Const All systems reviewed & are unremarkable except as noted in HPI and below Reports no additional complaints Eyes Reports no additional complaints ENT Reports no additional complaints Card Reports no additional complaints Resp Reports no additional complaints GI Reports no additional complaints Reports as per HPI Musc Reports no additional complaints Neuro Reports no additional complaints Psych Reports no additional complaints Endo Reports no additional complaints Mickey/Lymph Reports no additional complaints Aller/Immun Reports no additional complaints Physical Exam Const General: cooperative, healthy appearing, comfortable, no acute distress, well developed, alert and awake Nutritional Appearance: average body habitus Orientation/consciousness: patient oriented x3 Limitations: no limitations HEENT Head: Yes normal to inspection, Yes normocephalic and Yes atraumatic Ears: hearing grossly normal bilaterally Eyes General: appearance normal, both eyes and all related structures Neck Neck: Yes normal visual inspection and Yes trachea midline Chest Chest palpation & inspection: normal inspection of the chest Resp Effort & Inspection: normal respiratory effort and able to speak in complete sentences Cardio Rate: regular rate GI Inspection: Yes normal to inspection Rectal Exam - Male: Yes visual inspection normal, Yes normal sphincter tone and Yes prostate normal General: Yes no CVA tenderness Back/Spine/Pelvis Back: no CVA tenderness Skin General skin exam: no rashes or lesions noted Neuro General: patient oriented x3 Extrem General: Yes normal to inspection Psych Appearance: grossly normal and well kempt Mental Status: mental status grossly normal Speech and movement: Normal speech and movement present and Clear speech present Affect: normal affect Attitude: cooperative Thought process: Normal thought process present Thought content: Normal thought content present Insight: Good insight present (Psych) Judgement: Good judgement present (Psych) Results AMB Urinalysis, Automated UA Leukoctes 15 Garcia/uL Last Edit by Michele Best on 04/21/23 15:33 UA Nitrite Negative Last Edit by Michele Best on 04/21/23 15:33 UA Urobilinogen 0.2 mg/dL Last Edit by Michele Best on 04/21/23 15:33 UA Protein 15 mg/dL Last Edit by Michele Best on 04/21/23 15:33 UA pH 5.5 Last Edit by Michele Best on 04/21/23 15:33 UA Blood 0 Tin/uL Last Edit by Michele Best on 04/21/23 15:33 UA Specific [place] 1.030 Last Edit by Michele Best on 04/21/23 15:33 UA Ketone Positive Last Edit by Michele Best on 04/21/23 15:33 UA Bilirubin 0 mg/dL Last Edit by Michele Best on 04/21/23 15:33 UA Glucose 0 mg/dL Last Edit by Michele Best on 04/21/23 15:33 Results Reviewed Results Reviewed: Laboratory Last Values Urine pH (Auto) 5.5 04/21/23 15:17 Specific [place] (Auto) 1.030 04/21/23 15:17 Urine Protein (Auto) 15 mg/dL 04/21/23 15:17 Glucose (UA)(Auto) 0 mg/dL 04/21/23 15:17 Urine Ketones (Auto) Positive 04/21/23 15:17 Urine Blood (Auto) 0 Tin/uL 04/21/23 15:17 Urine Nitrite (Auto) Negative 04/21/23 15:17 Urine Bilirubin (Auto) 0 mg/dL 04/21/23 15:17 Urine Urobilinogen (Auto) 0.2 mg/dL 04/21/23 15:17 Leukocyte Esterase (Auto) 15 Garcia/uL 04/21/23 15:17 Date of Service: 04/14/23 EXAMINATION: US RETROPERITONEAL LIMITED (RENAL ONLY) FINDINGS: RIGHT KIDNEY: 11.6 x 5.0 x 6.1 cm (SAG x AP x TRV). Renal cortical thickness is normal. No hydronephrosis. Redemonstration of a 2.4 x 2.4 x 2.3 cm right midpole cyst with thin septation and peripheral calcification, previously 2.8 x 2.7 x 2.9 cm on 11/16/2022, 3.2 x 2.4 x 2.3 cm on 10/27/2021, and 2.2 x 2.1 x 2.1 cm on 04/02/2021. Additional Bosniak 1 simple cyst present for which there is no indication for followup imaging. LEFT KIDNEY: 13.1 x 6.3 x 5.6 cm (SAG x AP x TRV). Renal cortical thickness is normal. No renal calculi or hydronephrosis. A 1.8 cm interpolar Bosniak 1 cyst and there is no indication for followup imaging. IMPRESSION: A 2.4 cm right mid to lower pole cyst with thin septation and peripheral calcifications has decreased in size since 11/16/2022, but has gradually increased in size compared to studies from 2019 and 2020. Recommend continued attention on followup imaging. Assessment & Plan Assessment & Plan (1) Elevated PSA: Code(s): R97.20 - Elevated prostate specific antigen [PSA] (2) Renal cyst: Code(s): N28.1 - Cyst of kidney, acquired (3) Renal stones: Code(s): N20.0 - Calculus of kidney Plan In office urinalysis results reviewed with the patient today; as noted above. Continue finasteride as discussed and prescribed. Patient denies any urinary issues or concerns at this time He reports be happy with current voiding parameters. Recent renal ultrasound results reviewed with the patient and his daughter today; as noted above. Recent PSA results reviewed with the patient is daughter today; as noted above. Will continue with surveillance imaging for renal cysts Discussed at length potential causes for renal cyst as well as elevated PSA. Renal ultrasound in 6 months PSA in 6 months Follow-up in 6 months with imaging and lab to be completed prior; or sooner with any issues, concerns, and or questions. Orders: Orders US renal BI 6 Months N20.0 - Calculus of kidney Prostate Specific Antigen 6 Months R97.20 - Elevated prostate specific antigen [PSA] AMB Urinalysis Automated Today Z13.9 - Encounter for screening, unspecified Coding Level of Care Code Est Pt Level 3 (27108) Diagnoses Elevated PSA R97.20 Renal cyst N28.1 Renal stones N20.0
== END 2023-04-21 15:51 | disposition home or self-care (01) ==
PROVIDERS: Visit Provider Nurse Practitioner Family
DX: R97.20 Elevated prostate specific antigen [PSA] (principal); N28.1 Cyst of kidney, acquired; N20.0 Calculus of kidney
CPT/HCPCS: 99213

== ENCOUNTER → 2023-04-21 15:05 | Outpatient (BNVA) | payer MEDICARE, OTHER, SELFPAY | PROVIDERS: Visit Provider Nurse Practitioner Family | DX: R97.20 Elevated prostate specific antigen [PSA] (principal); N28.1 Cyst of kidney, acquired; N20.0 Calculus of kidney | CPT/HCPCS: 99212 ==

== ENCOUNTER 2023-10-13 13:03 | Outpatient (REF) | payer MEDICARE, OTHER, SELFPAY ==
[2023-10-13 13:28] LABS: MANUAL DIFF FLAG NO
[2023-10-13 13:41] LABS: Basophils Absolute Auto 0.1 X10*3/uL (0.0-0.2); Basophils Percent Auto 0.8 % (0-2); Eosinophils Absolute Auto 0.7 X10*3/uL (0.0-0.4); Eosinophils Percent Auto 8.3 % (0-4); Hematocrit 39.6 % (42.0-52.0); Hemoglobin 13.4 g/dl (14.0-18.0); Imm Gran Abs Auto 0.02 X10*3/uL (0.00-0.03); Imm Gran Pct Auto 0.2 % (0.0-0.4); Lymphocytes Absolute Auto 1.4 X10*3/uL (1.2-4.9); Lymphocytes Percent Auto 16.4 % (20-40); Mean Corpuscular HGB Conc 33.8 g/dl (31.0-36.0); Mean Corpuscular Hemoglobin 33.6 pg (27.0-33.0); Mean Corpuscular Volume 99.2 fL (80.0-98.0); Mean Platelet Volume 9.9 fL (9.4-12.4); Monocytes Absolute Auto 0.9 X10*3/uL (0.1-1.2); Monocytes Percent Auto 10.8 % (2-11); Neutrophils Absolute Auto 5.3 x10*3/uL (2.0-8.3); Neutrophils Percent Auto 63.5 % (45-73); Platelet Count 225 X10*3/uL (160-400); Red Blood Count 3.99 X10*6/uL (4.60-5.80); Red Cell Distribution Width 13.8 % (11.0-16.0); White Blood Count 8.4 X10*3/uL (4.8-10.8)
[2023-10-13 14:21] LABS: Erythrocyte Sedimentation Rate 14 MM/HR (0-15)
[2023-10-13 14:23] LABS: Alanine Aminotransferase 19 U/L (0-40); Albumin Level 3.6 g/dL (3.5-5.0); Alkaline Phosphatase 72 U/L (39-117); Anion Gap 11 (12-20); Aspartate Amino Transferase 23 U/L (5-37); Bilirubin Total 1.1 mg/dL (0.0-1.0); Blood Urea Nitrogen 19 mg/dL (9-16); Calcium 9.2 mg/dL (8.4-10.2); Carbon Dioxide 26 mmol/L (22-29); Chloride 108 mmol/L (96-108); Estimated Glomerular Filt Rate > 60; Glucose Random 90 mg/dL (60-115); Potassium 4.4 mmol/L (3.3-5.1); Sodium 141 mmol/L (135-145); Total Protein 6.9 g/dL (6.5-8.0)
[2023-10-13 14:27] LABS: Ferritin 123 ng/mL (20-250)
== END 2023-10-13 13:04 | disposition home or self-care (01) ==
LOC: HO.LAB 13:03
PROVIDERS: PCP Family Medicine; Visit Provider Family Medicine
DX: I10 Essential (primary) hypertension (principal); R53.83 Other fatigue; L29.9 Pruritus, unspecified
CPT/HCPCS: 36415; 80053; 82378; 82728; 85025; 85652

== ENCOUNTER 2023-10-27 14:42 | Outpatient (REF) | payer MEDICARE, OTHER, SELFPAY ==
--- NOTE | ~2023-10-27 | US_ITS ---
EXAMINATION: US RETROPERITONEAL LIMITED (RENAL ONLY) CLINICAL INFORMATION: Calculus of kidney. COMPARISON: Renal ultrasound 04/14/2023 and 11/16/2022. X-ray abdomen KUB 02/13/2020 and 01/16/2020. CT abdomen and pelvis without contrast 10/01/2019. TECHNIQUE: Real-time imaging of the kidneys. FINDINGS: RIGHT KIDNEY: 11.7 x 4.7 x 6.1 cm (SAG x AP x TRV). The kidney is normal in size, contour, and echogenicity. Renal cortical thickness is normal. No hydronephrosis. Midpole cyst measures 2.4 x 2.0 x 2.5 cm. Lower pole cyst measures 2.9 x 2.7 x 2.7 cm with thin septation and peripheral calcification. Midpole cyst measures 1.7 x 2.1 x 2.3 cm. No further routine imaging follow-up is needed. 6 mm nonobstructing calculus in the lower pole. LEFT KIDNEY: 11.3 x 5.5 x 4.6 cm (SAG x AP x TRV). The kidney is normal in size, contour, and echogenicity. Renal cortical thickness is normal. No renal calculi or hydronephrosis. Lower pole cyst measures 1.5 x 1.4 x 1.5 cm. No further routine imaging follow-up is needed. ADDITIONAL FINDINGS: Cholelithiasis. US/US renal BI IMPRESSION: Stable bilateral renal cysts requiring no further routine follow-up. Cholelithiasis.
[2023-10-27 16:44] LABS: Prostate Specific Antigen 2.37 ng/mL (<0.05-4.0)
== END 2023-10-27 14:43 | disposition home or self-care (01) ==
LOC: HO.US 14:42
PROVIDERS: PCP Family Medicine; Visit Provider Nurse Practitioner Family
DX: Z12.5 Encounter for screening for malignant neoplasm of prostate (principal); N20.0 Calculus of kidney; R97.20 Elevated prostate specific antigen [PSA]
CPT/HCPCS: 36415; 76775; 84153

== ENCOUNTER 2023-11-10 13:46 | Outpatient (AMB) | payer MEDICARE, OTHER, SELFPAY ==
--- NOTE | 2023-11-10 13:49 | A.OFFVIS_ITS ---
Intake Intake Visit Reasons: 6m/US/labs(set) Intake Note: Patient presents today for follow up visit for elevated PSA, renal cyst, renal stones Urology Medications: tamsulosin, finasteride Blood Thinner: none PVR: 18ml's Environmental Test Technician Required: No Accompanied by: Unknown Allergies meperidine [From Demerol] Allergy (Severe, Verified 11/10/23 17:30) N/V Medication List - Last Reconciled 11/10/23 by CAMRYN BenavidesP- atenolol 25 mg PO BEDTIME donepezil 10 mg PO BEDTIME finasteride 5 mg PO DAILY 90 days memantine 28 mg PO BEDTIME mesalamine 1,600 mg PO TID omeprazole 10 mg PO DAILY simvastatin 40 mg PO DAILY tamsulosin 0.4 mg PO DAILY 90 days HPI HPI Comments History of Present Illness Details Noah is a pleasant 87-year-old male patient of Dr. Fulton who was accompanied by his daughter at today's visit. He presents to the office today for follow-up of his renal cysts, nephrolithiasis, and elevated PSA. When asked patient reports to be doing and feeling well. He discusses recently moving to [place] in an assisted living to be closer to his 3 children. Recent renal imaging results reviewed with the patient and his daughter today. Right kidney with hydronephrosis. Mid pole cyst measures 2.5 cm, lower pole cyst measures 2.9 cm with thin septations and peripheral calcification mid pole cyst measures 2.3 cm. No further routine imaging follow-up is needed per radiology report. 6 mm nonobstructing calculus in the lower pole. Left kidney with no calculi, and or hydronephrosis. Lower pole cysts measuring 1.5 cm with no further routine imaging follow-up per radiology report. When asked he reports to be doing and feeling well. He reports compliance with Flomax and finasteride as prescribed. He denies any urinary issues or concerns. He is happy with his current voiding parameters. Recent PSA results reviewed with the patient is daughter today. PSAs are as follows: 11/17--4.7 PSA total and free %: 18% 11/18--5.4 PSA total and free %: 19% 04/17--3.6 11/19--2.4 When asked he denies urinary urgency, urinary frequency, incontinence, nocturia, hematuria, dysuria, foul smelling urine, changes to urinary stream, flank pain, fever, and or chills. In office urinalysis results reviewed with the patient today. PVR 18ml's. Renal cyst Interval imaging Imaging - 10/16 renal ultrasound question of smal l stones bilateral with renal cysts - 05/16 renal ultrasound.? Bilateral zhane l cyst up to 2 cm.? No evidence of stones - 11/17 renal ultrasound bilateral renal cyst up to 2 cm question of small stone right side -04/17 renal ultrasound bilateral renal c yst up to 2cm. No evidence of stones -11/18 renal ultrasound bilateral renal c ysts up to 2 cm; 6 mm right nonobstructing stone PFSH Medical History Colitis Elevated PSA Renal cyst Renal stones Elevated PSA Ureteral stone with hydronephrosis Renal stones Surgical History History of bowel resection Social History Household Members: Spouse Alcohol intake: never Current occupational status: retired Review of Systems Const All systems reviewed & are unremarkable except as noted in HPI and below Reports no additional complaints Eyes Reports no additional complaints ENT Reports no additional complaints Card Reports no additional complaints Resp Reports no additional complaints GI Reports no additional complaints Reports as per HPI Musc Reports no additional complaints Neuro Reports no additional complaints Psych Reports no additional complaints Endo Reports no additional complaints Mickey/Lymph Reports no additional complaints Aller/Immun Reports no additional complaints Physical Exam Const General: cooperative, healthy appearing, comfortable, no acute distress, well developed, alert and awake Nutritional Appearance: average body habitus Orientation/consciousness: patient oriented x3 Limitations: no limitations HEENT Head: Yes normal to inspection, Yes normocephalic and Yes atraumatic Ears: hearing grossly normal bilaterally Eyes General: appearance normal, both eyes and all related structures Neck Neck: Yes normal visual inspection and Yes trachea midline Chest Chest palpation & inspection: normal inspection of the chest Resp Effort & Inspection: normal respiratory effort and able to speak in complete sentences Cardio Rate: regular rate GI Inspection: Yes normal to inspection Rectal Exam - Male: Yes visual inspection normal, Yes normal sphincter tone and Yes prostate normal General: Yes no CVA tenderness Back/Spine/Pelvis Back: no CVA tenderness Skin General skin exam: no rashes or lesions noted Neuro General: patient oriented x3 Extrem General: Yes normal to inspection Psych Appearance: grossly normal and well kempt Mental Status: mental status grossly normal Speech and movement: Normal speech and movement present and Clear speech present Affect: normal affect Attitude: cooperative Thought process: Normal thought process present Thought content: Normal thought content present Insight: Good insight present (Psych) Judgement: Good judgement present (Psych) Office Procedures Post Void Residual Post Residual Void Post Void Residual (PVR): 18 [id number]-[id number] Void Residual by ultrasound Results AMB Urinalysis, Automated UA Leukoctes 15 Garcia/uL Last Edit by Diet TV on 11/10/23 14:14 UA Nitrite Negative Last Edit by Diet TV on 11/10/23 14:14 UA Urobilinogen 0.2 mg/dL Last Edit by Diet TV on 11/10/23 14:14 UA Protein 15 mg/dL Last Edit by Diet TV on 11/10/23 14:14 UA pH 5.5 Last Edit by Diet TV on 11/10/23 14:14 UA Blood 0 Tin/uL Last Edit by Diet TV on 11/10/23 14:14 UA Specific [place] 1.030 Last Edit by Diet TV on 11/10/23 14:14 UA Ketone Positive Last Edit by Diet TV on 11/10/23 14:14 UA Bilirubin 1 mg/dL Last Edit by Diet TV on 11/10/23 14:14 UA Glucose 0 mg/dL Last Edit by Diet TV on 11/10/23 14:14 Results Reviewed Results Reviewed: Laboratory Last Values Urine pH (Auto) 5.5 11/10/23 14:13 Specific [place] (Auto) 1.030 11/10/23 14:13 Urine Protein (Auto) 15 mg/dL 11/10/23 14:13 Glucose (UA)(Auto) 0 mg/dL 11/10/23 14:13 Urine Ketones (Auto) Positive 11/10/23 14:13 Urine Blood (Auto) 0 Tin/uL 11/10/23 14:13 Urine Nitrite (Auto) Negative 11/10/23 14:13 Urine Bilirubin (Auto) 1 mg/dL 11/10/23 14:13 Urine Urobilinogen (Auto) 0.2 mg/dL 11/10/23 14:13 Leukocyte Esterase (Auto) 15 Garcia/uL 11/10/23 14:13 Date of Service: 10/27/23 EXAMINATION: US RETROPERITONEAL LIMITED (RENAL ONLY) CLINICAL INFORMATION: Calculus of kidney. COMPARISON: Renal ultrasound 04/14/2023 and 11/16/2022. X-ray abdomen KUB 02/13/2020 and 01/16/2020. CT abdomen and pelvis without contrast 10/01/2019. TECHNIQUE: Real-time imaging of the kidneys. FINDINGS: RIGHT KIDNEY: 11.7 x 4.7 x 6.1 cm (SAG x AP x TRV). The kidney is normal in size, contour, and echogenicity. Renal cortical thickness is normal. No hydronephrosis. Midpole cyst measures 2.4 x 2.0 x 2.5 cm. Lower pole cyst measures 2.9 x 2.7 x 2.7 cm with thin septation and peripheral calcification. Midpole cyst measures 1.7 x 2.1 x 2.3 cm. No further routine imaging follow-up is needed. 6 mm nonobstructing calculus in the lower pole. LEFT KIDNEY: 11.3 x 5.5 x 4.6 cm (SAG x AP x TRV). The kidney is normal in size, contour, and echogenicity. Renal cortical thickness is normal. No renal calculi or hydronephrosis. Lower pole cyst measures 1.5 x 1.4 x 1.5 cm. No further routine imaging follow-up is needed. ADDITIONAL FINDINGS: Cholelithiasis. IMPRESSION: Stable bilateral renal cysts requiring no further routine follow-up. Cholelithiasis. Assessment & Plan Assessment & Plan (1) Elevated PSA: Code(s): R97.20 - Elevated prostate specific antigen [PSA] (2) Renal cyst: Code(s): N28.1 - Cyst of kidney, acquired Plan In office urinalysis results reviewed with the patient today; as noted above. PVR results reviewed with the patient today: 18 mL. Recent renal imaging results reviewed with the patient today; as noted above. Discussed at length potential causes of renal cysts as well as nephrolithiasis. Continue Flomax and finasteride as discussed and prescribed. Recent PSA results; as noted above. Patient currently denies any bothersome urinary issues or concerns for He is happy with current voiding parameters Will obtain PSA in 6 months. Will obtain renal ultrasound in 6 months. Discussed, educated, encouraged to drink plenty of fluid daily. Follow-up in 6 months with imaging and labs to be completed prior; or sooner with any issues, concerns, and or questions. Orders: Orders AMB Post Void Residual by ultrasound Today N13.2 - Hydronephrosis with renal and ureteral calculous obstruction Prostate Specific Antigen 6 Months R97.20 - Elevated prostate specific antigen [PSA] US renal BI 6 Months N20.0 - Calculus of kidney, N28.1 - Cyst of kidney, acquired, R97.20 - Elevated prostate specific antigen [PSA] AMB Urinalysis Automated Today Z13.9 - Encounter for screening, unspecified Patient Instructions: The patient had an opportunity to ask questions regarding the treatment plan. All questions were answered. Physical exam, labs, and imaging were discussed and reviewed in detail. As well as risks, benefits, and discussion of treatment choices. No major barriers to understanding were identified. The patient expressed understanding and agreement with the above treatment plan. The patient was made aware they should contact our office by phone for worsening of their current condition, the appearance of new symptoms, or with any questions or concerns. Compliance is encouraged with any medications and follow up testing that is ordered. It is a privilege to be allowed the opportunity to participate in? your urological care.? Again, if you have any questions or concerns If you have any questions or concerns please do not hesitate to contact me. The office is [phone]. This note is constructed using voice recognition software. While every effort has been made to ensure accuracy rural mail carrier errors may have been included. Yours sincerely, EWA Benavides Coding Level of Care Code Est Pt Level 4 (15181) Diagnoses Elevated PSA R97.20 Renal cyst N28.1 CPT Codes Post Residual Void - PVR CPT Code: 91711-Zqxc Void Residual by ultrasound ([id number])
== END 2023-11-10 14:33 | disposition home or self-care (01) ==
PROVIDERS: PCP Family Medicine; Visit Provider Nurse Practitioner Family
DX: R97.20 Elevated prostate specific antigen [PSA] (principal); N28.1 Cyst of kidney, acquired; Z13.9 Encounter for screening, unspecified
CPT/HCPCS: 99214

== ENCOUNTER → 2023-11-10 13:46 | Outpatient (BNVA) | payer MEDICARE, OTHER, SELFPAY | PROVIDERS: PCP Family Medicine; Visit Provider Nurse Practitioner Family | DX: R97.20 Elevated prostate specific antigen [PSA] (principal); N28.1 Cyst of kidney, acquired | CPT/HCPCS: 51798; 81003; 99212 ==

== ENCOUNTER 2024-07-19 13:25 | Outpatient (REF) | payer MEDICARE, OTHER, SELFPAY ==
[2024-07-19 14:56] LABS: Alanine Aminotransferase 20 U/L (0-40); Anion Gap 11 (12-20); Aspartate Amino Transferase 25 U/L (5-37); Blood Urea Nitrogen 17 mg/dL (9-16); Carbon Dioxide 26 mmol/L (22-29); Chloride 108 mmol/L (96-108); Estimated Glomerular Filt Rate > 60; Potassium 4.3 mmol/L (3.3-5.1); Sodium 141 mmol/L (135-145)
[2024-07-19 15:05] LABS: Prostate Specific Antigen 2.05 ng/mL (<0.05-4.0)
== END 2024-07-19 13:26 | disposition home or self-care (01) ==
LOC: HO.US 13:25
PROVIDERS: PCP Family Medicine; Visit Provider Nurse Practitioner Family
DX: R97.20 Elevated prostate specific antigen [PSA] (principal); N20.0 Calculus of kidney; N28.1 Cyst of kidney, acquired; Z12.5 Encounter for screening for malignant neoplasm of prostate
CPT/HCPCS: 36415; 76775; 80051; 82550; 82565; 84153; 84450; 84460; 84520

== ENCOUNTER 2024-09-06 10:06 | Outpatient (AMB) | payer MEDICARE, OTHER, SELFPAY ==
--- NOTE | 2024-09-06 10:06 | A.OFFVIS_ITS ---
Intake Visit Reasons: 6M PSA/ US(set) Intake Note: Patient presents today for tele visit follow up visit for elevated PSA, renal cyst, renal stones, ultrasound and psa results Imaging Completed: 07/19/24 PSA: 2.05 Urology Medications: tamsulosin, finasteride Blood Thinner: none Custodial Manager Required: No Allergies meperidine [From Demerol] Allergy (Severe, Verified 09/06/24 10:26) N/V Medication List - Last Reconciled 09/06/24 by KONRAD Benavides- atenolol 25 mg PO BEDTIME donepezil 10 mg PO BEDTIME finasteride 5 mg PO DAILY 90 days memantine 28 mg PO BEDTIME mesalamine 1,600 mg PO TID omeprazole 10 mg PO DAILY simvastatin 40 mg PO DAILY tamsulosin 0.4 mg PO DAILY 90 days HPI Comments Details: Noah is a pleasant 88-year-old male patient of Dr. Fulton who was accompanied by his daughter during today's video telehealth visit. He is being followed up on today for his history of renal cysts, nephrolithiasis, and elev ated PSA. In discussion with the patient today he reports to be doing and feeling well. He offers no urological issues or concerns at this time. Reports compliance with Flomax and finasteride as prescribed. Recent renal imaging results reviewed. Bilateral kidneys are normal in size, contour, and echogenicity. Benign bilateral Bosniak class I and II cysts noted that require no imaging follow-up per radiology report. No renal calculi or hydronephrosis noted bilaterally. Recent PSA results reviewed with the patient is daughter today. PSAs are as follows: 11/17 4.7 PSA total and free %: 18%, 11/18 5.4 PSA total and free %: 19%, 04/17 3.6, 11/19 2.4, 07/19 2.1 He is happy with his current voiding parameters. When asked he denies urinary urgency, urinary frequency, incontinence, nocturia, hematuria, dysuria, foul smelling urine, changes to urinary stream, flank pain, fever, and or chills. Renal cyst Interval imaging Imaging - 10/16 renal ultrasound question of small stones bilateral with renal cysts - 05/16 renal ultrasound.? Bilateral renal cyst up to 2 cm.? No evidence of stones - 11/17 renal ultrasound bilateral renal cyst up to 2 cm question of small stone right side -04/17 renal ultrasound bilateral renal cyst up to 2cm. No evidence of stones -11/18 renal ultrasound bilateral renal cysts up to 2 cm; 6 mm right nonobstructing stone PFSH Medical History Colitis Elevated PSA Renal cyst Renal stones Elevated PSA Ureteral stone with hydronephrosis Renal stones Surgical History History of bowel resection Social History Household Members: Spouse Alcohol intake: never Current occupational status: retired Review of Systems Const All systems reviewed & are unremarkable except as noted in HPI and below Reports no additional complaints Eyes Reports no additional complaints ENT Reports no additional complaints Card Reports no additional complaints Resp Reports no additional complaints GI Reports no additional complaints Reports as per HPI Musc Reports no additional complaints Neuro Reports no additional complaints Psych Reports no additional complaints Endo Reports no additional complaints Mickey/Lymph Reports no additional complaints Aller/Immun Reports no additional complaints Physical Exam Const General: cooperative, healthy appearing, comfortable, no acute distress, well developed, alert, awake and Physically active Orientation/consciousness: patient oriented x3 Resp Effort & Inspection: normal respiratory effort and able to speak in complete sentences Neuro General: patient oriented x3 Psych Appearance: grossly normal and well kempt Mental Status: mental status grossly normal Speech and movement: Clear speech present Affect: normal affect Attitude: cooperative Thought process: Normal thought process present Thought content: Normal thought content present Insight: Fair insight present (Psych) Judgement: Fair judgement present (Psych) Telehealth Telehealth Telehealth Platform: [facility] Location of provider rendering services: practice address Location of patient: address on file Patient Identification confirmed using: Name, : Yes Telehealth method: video Patient verbally consented to treatment: Yes Patient verbally consented to billing insurance company: Yes Patient informed of any privacy concerns related to visit: Yes Minutes spent on Phone/Video with Pt.: 15 Results Reviewed Results Reviewed: Date of Service: 07/19/24 EXAMINATION: US RETROPERITONEAL LIMITED (RENAL ONLY) FINDINGS: RIGHT KIDNEY: 11.3 x 5.0 x 4.6 cm (SAG x AP x TRV). The kidney is normal in size, contour, and echogenicity. Renal cortical thickness is normal. No renal calculi or hydronephrosis. 2 benign Bosniak class I renal cysts are noted, the largest measuring 2.2 cm. There is a single lower pole Bosniak class II cyst measuring 3.1 cm with a single thin septation. All of these require no additional imaging or follow-up. No solid renal masses are seen. LEFT KIDNEY: 11.5 x 5.4 x 4.3 cm (SAG x AP x TRV). The kidney is normal in size, contour, and echogenicity. Renal cortical thickness is normal. No renal calculi or hydronephrosis. A benign lower pole 1.2 cm Bosniak class I renal cyst is noted which requires no additional imaging or follow up. No solid renal masses are seen. IMPRESSION: Negative exam. No renal calculi are seen. Assessment & Plan Assessment & Plan (1) Elevated PSA: Code(s): R97.20 - Elevated prostate specific antigen [PSA] Category: Medical (2) Renal cyst: Code(s): N28.1 - Cyst of kidney, acquired Category: Medical (3) Renal stones: Code(s): N20.0 - Calculus of kidney Category: Medical Plan Recent renal imaging results reviewed with the patient today; as noted above. Continue Flomax and finasteride as discussed and prescribed. Recent PSA results; as noted above. Patient currently denies any bothersome urinary issues or concerns for He is happy with current voiding parameters Will obtain renal ultrasound and PSA in 1 year Discussed, educated, encouraged to drink plenty of fluid daily. Follow-up in 1 year with imaging, PSA, and PVR; or sooner with any issues, concerns, and or questions. Orders: Orders US renal BI 1 Year N20.0 - Calculus of kidney Prostate Specific Antigen 1 Year R97.20 - Elevated prostate specific antigen [PSA] Medications: Refilled finasteride 5 mg PO DAILY 90 tabs 3RF 90 days R97.20 - Elevated prostate specific antigen [PSA] Patient Instructions: The patient had an opportunity to ask questions regarding the treatment plan. All questions were answered. Physical exam, labs, and imaging were discussed and reviewed in detail. As well as risks, benefits, and discussion of treatment choices. No major barriers to understanding were identified. The patient expressed understanding and agreement with the above treatment plan. The patient was made aware they should contact our office by phone for worsening of their current condition, the appearance of new symptoms, or with any questions or concerns. Compliance is encouraged with any medications and follow up testing that is ordered. It is a privilege to be allowed the opportunity to participate in? your urological care.? Again, if you have any questions or concerns If you have any questions or concerns please do not hesitate to contact me. The office is [phone]. This note is constructed using voice recognition software. While every effort has been made to ensure accuracy vendor representatives errors may have been included. Yours sincerely, EWA Benavides Coding Level of Care Code Tele Est Pt Level 3 (55807) Diagnoses Elevated PSA R97.20 Renal cyst N28.1 Renal stones N20.0
== END 2024-09-06 11:47 | disposition home or self-care (01) ==
LOC: HO.HUSH 10:06
PROVIDERS: PCP Family Medicine; Visit Provider Nurse Practitioner Family
DX: R97.20 Elevated prostate specific antigen [PSA] (principal); N28.1 Cyst of kidney, acquired; N20.0 Calculus of kidney
CPT/HCPCS: 99213

== ENCOUNTER → 2024-09-06 10:06 | Outpatient (BNVA) | payer MEDICARE, OTHER, SELFPAY | PROVIDERS: PCP Family Medicine; Visit Provider Nurse Practitioner Family ==

== ENCOUNTER 2025-03-07 14:45 | Outpatient (REF) | payer MEDICARE, OTHER, SELFPAY ==
[2025-03-07 15:26] LABS: Alanine Aminotransferase 21 U/L (0-40); Anion Gap 9 (12-20); Aspartate Amino Transferase 22 U/L (5-37); Blood Urea Nitrogen 18 mg/dL (9-16); Carbon Dioxide 29 mmol/L (22-29); Chloride 107 mmol/L (96-108); Estimated Glomerular Filt Rate > 60; Potassium 4.2 mmol/L (3.3-5.1); Sodium 141 mmol/L (135-145)
--- OUTSIDE RECORDS SUMMARY | 2025-03-07 17:23 | XMS_ITS | Patient Health Record ---
Author Organization [facility] Address [address] [address] Care Team Providers Care Nursing Home Admissions Director Name Role Phone Chu Vergara MD Primary Care Provider UnavailAndrzej Montiel Unavailable [phone] Allergies Allergen (clinical drug ingredient) Drug/Non Drug Allergy documented on EMR Reaction Allergy Type Onset Date Status meperidine demerol Unknown Drug Allergy Active Reason For Referral No Information Medications Medication SIG (Take, Route, Frequency, Duration) Notes Start Date End Date Status Simvastatin Active atenolol Active Omeprazole Active Social History Tobacco use other than smoking: Question Answer Notes Are you an other tobacco user? No Plan Of Treatment Pending Test Test Name Order Date [id number] NAIL, -04/07/2016 [id number] Destruction, -04/07/2016 Insurance Providers Payer Name Payer Address Payer Phone Subscriber Number Group Number Insured Name Patient Relationship to Insured Coverage Start Date Coverage End Date Medicare [employer] [address] [facility] [place] [phone] [id number] Noah Jo Self - patient is the insured [facility] [address] [place] [address] [id number] AvtarNoah rosas Self - patient is the insured Medical (General) History Medical History History ICD Code Broken bones Cataracts High blood pressure Reflux Surgical History Surgery Date(Month/Year) ankle surgery inguinal hernia repair colon
== END 2025-03-07 14:46 | disposition home or self-care (01) ==
LOC: HO.LAB 14:45
PROVIDERS: PCP Family Medicine; Visit Provider Family Medicine
DX: I10 Essential (primary) hypertension (principal); E78.00 Pure hypercholesterolemia, unspecified
CPT/HCPCS: 36415; 80051; 82550; 82565; 84450; 84460; 84520